=== PATIENT | male | born 1935 | race Caucasian/White ===

== ENCOUNTER → 2016-10-08 | Outpatient (CLI) | payer BC ==
[~2016-10-08] MED LIST: ASPEC325 PO; ASPI81TA28 PO; ATEN50TA8 PO; CALC600T PO; CALCTAB5 PO; FIBER CON; FINA5TAB PO; FSM70 PO; GARL500C5 PO; GARLTAB3 PO; NIAC100T5 PO; POLY335019 PO; PRIM50TA29 PO; SIMV20TA2 PO; TRAMTAB5 PO
[2016-10-08 09:54] LABS: HEMATOCRIT 45.7 % (42-52); MEAN CORPUSCULAR HEMOGLOBIN 33.8 pg (25-34); MEAN CORPUSCULAR HGB CONC 35.2 g/dl (32-36); MEAN PLATELET VOLUME 10.2 fL (7.4-10.4); PLATELET COUNT 184 K/uL (130-400); RED BLOOD COUNT 4.76 M/uL (4.7-6.1); WHITE BLOOD COUNT 6.44 K/uL (4.8-10.8)
[2016-10-08 09:59] LABS: URINE APPEARANCE CLEAR (CLEAR); URINE BILIRUBIN NEG (NEG); URINE COLOR DK YELLOW; URINE EPITHELIAL CELL AUTO 0-5 /lpf (0-5); URINE NITRITE NEG (NEG); URINE PH 5.5 (4.5-7.5); URINE SPECIFIC GRAVITY 1.024 (1.000-1.030); UROBILINOGEN NEG (NEG)
[2016-10-08 10:07] LABS: MANUAL MICROSCOPIC REQUIRED? NO; REVIEW REQ? NO
[2016-10-08 10:10] LABS: ALT/SGPT 29 U/L (12-78); AST/SGOT 18 U/L (15-37); BLOOD UREA NITROGEN 15 mg/dl (7-18); BUN/CREATININE RATIO 17.4 (10-20); CALCIUM 8.4 mg/dl (8.5-10.1); CARBON DIOXIDE 29 mmol/L (21-32); CHLORIDE 105 mmol/L (98-107); CREATININE 0.89 mg/dl (0.60-1.40); GLUCOSE 100 mg/dl (70-99); POTASSIUM 3.7 mmol/L (3.5-5.1); SODIUM 141 mmol/L (136-145); URIC ACID 5.3 mg/dl (2.6-7.2)
[2016-10-08 10:12] LABS: ALKALINE PHOSPHATASE 65 U/L (45-117); CHOLESTEROL 149 mg/dl (0-200); CHOLESTEROL/HDL RATIO 2.8; HDL CHOLESTEROL 54 mg/dl; LDL CHOLESTEROL CALCULATED 76 mg/dl; TRIGLYCERIDES 97 mg/dl (0-150); VERY LOW DENSITY LIPOPROT CALC 19 mg/dl
[2016-10-08 10:40] LABS: URINE PROTIEN/CREAT RATIO 0.1 (0-0.2); URINE TOTAL PROTEIN 11.5 mg/dl (0-11.9)
[2016-10-08 10:48] LABS: ESTIMATED AVERAGE GLUCOSE 120 mg/dl; HA1C FLAG Normal (Normal)
== END | disposition home or self-care (01) ==
LOC: C.LAB 07:07
PROVIDERS: ATTEND Internal Medicine
DX: N20.0 Calculus of kidney (principal); I10 Essential (primary) hypertension; E55.9 Vitamin D deficiency, unspecified; E78.00 Pure hypercholesterolemia, unspecified; R73.01 Impaired fasting glucose

== ENCOUNTER 2017-03-28 14:06 | Emergency (ER) | payer BC ==
[~2017-03-28] VITALS: Ht 176.5 cm; Wt 95.9 kg
[~2017-03-28 14:06] MED LIST changes: -ASPI81TA28 PO; -CALC600T PO; -GARL500C5 PO; -POLY335019 PO
[2017-03-28 14:18] VITALS: TEMP 36.8; Ht 176.5 cm; Wt 95.9 kg
[2017-03-28] MEDS ORDERED: GARL500C5 PO (14:42)
[2017-03-28] MEDS ORDERED: POLY335019 PO (14:42)
[2017-03-28] MEDS ORDERED: ASPI81TA28 PO (14:43)
[2017-03-28] MEDS ORDERED: ATEN50TA8 PO (14:44)
[2017-03-28] MEDS ORDERED: CALC600T PO (14:44)
--- NOTE | 2017-03-28 15:15 | DIAGNOSTIC IMAGING REPORT ---
L FOOT MIN 3 VIEWS ROUTINE CLINICAL HISTORY: Left foot pain status post trauma COMPARISON: None. DISCUSSION: There are acute fractures involving the necks of the fourth and fifth metatarsals. There are 2 dislocations at the level of the second and third metatarsal phalangeal joints. There is a tiny bony fragment at the level of the medial aspect of the first metatarsal phalangeal joint. This likely represent a chip fracture. There is equivocal slight lateral subluxation of the proximal phalanx the great toe. There is a pes planus deformity. There is a plantar calcaneal spur. IMPRESSION: 1. Acute fractures involving the fourth and fifth metatarsal necks 2. Dislocations at the level the second and third metatarsal phalangeal joints 3. Age-indeterminate chip fracture likely arising from the medial base of the proximal phalanx of the great toe Electronically signed by: Reese Villarreal M.D. 03/28/2017 3:13 PM Dictated Date/Time: 03/28/2017 3:11 PM
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
[2017-03-28 16:06] VITALS: BP 150/83; PULSE 64; O2SAT 96
== END 2017-03-28 16:08 | disposition home or self-care (01) ==
LOC: C.EDB 14:08 → C.EDD 16:08
DX: S92.345A Nondisplaced fracture of fourth metatarsal bone, left foot, initial encounter for closed fracture (principal); S92.355A Nondisplaced fracture of fifth metatarsal bone, left foot, initial encounter for closed fracture; S93.125A Dislocation of metatarsophalangeal joint of left lesser toe(s), initial encounter; W20.8XXA Other cause of strike by thrown, projected or falling object, initial encounter; Y93.89 Activity, other specified; I10 Essential (primary) hypertension; E78.00 Pure hypercholesterolemia, unspecified; R25.1 Tremor, unspecified; H35.30 Unspecified macular degeneration; Z79.82 Long term (current) use of aspirin; Z79.899 Other long term (current) drug therapy

== ENCOUNTER → 2017-04-11 | Outpatient (CLI) | payer BC ==
[~2017-04-11] MED LIST changes: -ASPEC325 PO; +ASPI81TA28 PO; +CALC600T PO; -CALCTAB5 PO; -FIBER CON; -FSM70 PO; +GARL500C5 PO; -GARLTAB3 PO; +POLY335019 PO; -TRAMTAB5 PO
[2017-04-11 10:03] LABS: ALT/SGPT 21 U/L (12-78); BLOOD UREA NITROGEN 16 mg/dl (7-18); BUN/CREATININE RATIO 19.8 (10-20); CALCIUM 8.9 mg/dl (8.5-10.1); CARBON DIOXIDE 29 mmol/L (21-32); CHLORIDE 105 mmol/L (98-107); CHOLESTEROL 141 mg/dl (0-200); GLUCOSE 92 mg/dl (70-99); SODIUM 140 mmol/L (136-145); TRIGLYCERIDES 67 mg/dl (0-150); VERY LOW DENSITY LIPOPROT CALC 13 mg/dl
[2017-04-11 10:07] LABS: AST/SGOT 17 U/L (15-37); HDL CHOLESTEROL 47 mg/dl; LDL CHOLESTEROL CALCULATED 81 mg/dl
== END | disposition home or self-care (01) ==
LOC: C.LAB 07:07
PROVIDERS: ATTEND Internal Medicine
DX: R73.01 Impaired fasting glucose (principal); E55.9 Vitamin D deficiency, unspecified; E78.00 Pure hypercholesterolemia, unspecified

== ENCOUNTER → 2017-10-08 | Outpatient (CLI) | payer BC ==
[2017-10-08 09:48] LABS: ALT/SGPT 26 U/L (12-78); AST/SGOT 20 U/L (15-37); BLOOD UREA NITROGEN 13 mg/dl (7-18); CALCIUM 8.8 mg/dl (8.5-10.1); CARBON DIOXIDE 27 mmol/L (21-32); CHOLESTEROL 136 mg/dl (0-200); GLUCOSE 106 mg/dl (70-99); SODIUM 139 mmol/L (136-145)
[2017-10-08 09:51] LABS: LDL CHOLESTEROL CALCULATED 69 mg/dl
[2017-10-08 09:59] LABS: HEMOGLOBIN A1C 5.7 % (4.5-5.6)
== END | disposition home or self-care (01) ==
LOC: C.LAB 07:26
PROVIDERS: ATTEND Internal Medicine
DX: E55.9 Vitamin D deficiency, unspecified (principal); E78.00 Pure hypercholesterolemia, unspecified; I10 Essential (primary) hypertension; R73.01 Impaired fasting glucose